=== PATIENT | male | born 1950 | race Caucasian/White ===

== ENCOUNTER 2018-08-09 12:09 | Outpatient (CLI) | payer MEDICARE ==
--- NOTE | 2018-08-09 14:16 | RAD ---
PA AND LATERAL VIEWS CHEST: Date; 08/09/18 HISTORY: Cough. FINDINGS: The heart size is normal. There is elevation of the right hemidiaphragm. The lungs are well expanded without focal areas of consolidation, pneumothoraces, or pleural effusions. There are degenerative ch anges in the spine. IMPRESSION: No radiographic evidence of acute cardiopulmonary process. POS: [facility]
--- NOTE | 2018-08-09 14:19 | RAD ---
LEFT HIP 2 VIEWS: Date: 08/09/18 HISTORY: Left hip pain. FINDINGS: Degenerative changes are seen in the left hip joint. No acute fracture, dislocation, or bony destruct ion is identified. IMPRESSION: Left hip osteoarthritis. POS: [facility]
== END 2018-08-09 12:10 | disposition home or self-care (01) ==
LOC: MADRAD 12:09
PROVIDERS: ATTEND Obstetrics & Gynecology
DX: J40 Bronchitis, not specified as acute or chronic (principal); M25.552 Pain in left hip; M16.12 Unilateral primary osteoarthritis, left hip
CPT/HCPCS: 71046